=== PATIENT | male | born 1980 | race Hispanic/Latino ===

== ENCOUNTER 2017-05-01 17:24 | Emergency (ER) | payer MEDICAID, OTHER ==
[2017-05-01 17:24] VITALS: BMI 23.5
[2017-05-01 17:41] VITALS: RESP 18; TEMP 98.9
--- NOTE | 2017-05-01 20:09 | ED PDOC ---
Arrival/HPI - General Historian: Patient - History of Present Illness Time/Duration: 24 hours Symptom Onset: Gradual Symptom Course: Unchanged, Improving Quality: Aching Severity Level: Mild Activities at Onset: Rest Context: Home <Kasandra Mccarthy - Last Filed: 05/01/17 20:37> <JimDeepak - Last Filed: 05/02/17 00:13> - General Chief Complaint: Abnormal Skin Integrity Time Seen by Provider: 05/01/17 18:12 - History of Present Illness Narrative History of Present Illness (Text): 05/01/17 20:02 Pt is a 36 year old male who presents with a diffuse, non-pruritic rash over the upper extremity, chest, back, and torso x 1 day. Pt states that he has had headache, and nausea x 2 days. States he works at a [employer] and wears latex gloves and noticed that his rash was worse while working and began to resolve after leaving today. Rash returned mildly while waiting to be seen in the emergency department. Denies vomiting, diarrhea, fever, chills or any other complaints. Reports sick contacts at work. 05/01/17 20:09 (Kasandra Mccarthy) Past Medical History - Provider Review Nursing Documentation Reviewed: Yes - Travel History Have you recently traveled outside [place] w/in the past 3 mons?: No - Past History Past History: No Previous - Infectious Disease Hx of Infectious Diseases: None - Tetanus Immunization Tetanus Immunization: Unknown - Past Medical History Past Medical History: No Previous - Cardiac Hx Cardiac Disorders: No Hx Hypertension: No - Pulmonary Hx Respiratory Disorders: No Hx Tuberculosis: No - Neurological Hx Neurological Disorder: No HX Cerebrovascular Accident: No Hx Seizures: No - HEENT Hx HEENT Disorder: No - Renal Hx Renal Disorder: No - Endocrine/Metabolic Hx Endocrine Disorders: No - Hematological/Oncological Hx Blood Disorders: No Hx Cancer: No - Integumentary Hx Dermatological Disorder: No - Musculoskeletal/Rheumatological Hx Musculoskeletal Disorders: No - Gastrointestinal Hx Gastrointestinal Disorders: No - Genitourinary/Gynecological Hx Genitourinary Disorders: No Hx Sexually Transmitted Diseases: No - Psychiatric Hx Depression: Yes Hx Emotional Abuse: No Hx Physical Abuse: No Hx Substance Use: No - Past Surgical History Past Surgical History: Non-Contributing - Surgical History Hx Orthopedic Surgery: Yes (RIGHT HAND) Other/Comment: right hand - Anesthesia Hx Anesthesia: Yes Hx Anesthesia Reactions: No Hx Malignant Hyperthermia: No - Suicidal Assessment Feels Threatened In Home Enviroment: No <Kasandra Mccarthy - Last Filed: 05/01/17 20:37> Family/Social History - Physician Review Nursing Documentation Reviewed: Yes Family/Social History: Unknown Family HX Smoking Status: Never Smoked Hx Alcohol Use: No Hx Substance Use: No Hx Substance Use Treatment: No <Kasandra Mccarthy - Last Filed: 05/01/17 20:37> Allergies/Home Meds <Kasandra Mccarthy - Last Filed: 05/01/17 20:37> <Deepak Fernandez - Last Filed: 05/02/17 00:13> Allergies/Adverse Reactions: Allergies No Known Allergies Allergy (Verified 05/01/17 17:41) Review of Systems - Review of Systems Constitutional: Fatigue Eyes: Normal ENT: Normal Respiratory: Normal Cardiovascular: Normal Gastrointestinal: Nausea Genitourinary Male: Normal Musculoskeletal: Arthralgias, Back Pain Skin: Rash (hands and arms) Neurological: Headache Endocrine: Normal Hemo/Lymphatic: Normal Psychiatric: Normal <Kasandra Mccarthy - Last Filed: 05/01/17 20:37> Physical Exam Vital Signs Reviewed: Yes Temperature: Afebrile Blood Pressure: Normal Pulse: Regular Respiratory Rate: Normal Appearance: Positive for: Well-Appearing, Non-Toxic, Comfortable Pain Distress: None Mental Status: Positive for: Alert and Oriented X 3 - Systems Exam Head: Present: Atraumatic, Normocephalic Pupils: Present: PERRL Extroacular Muscles: Present: EOMI Conjunctiva: Present: Normal Mouth: Present: Moist Mucous Membranes Pharnyx: Present: ERYTHEMA Nose (Internal): Present: Normal Inspection Neck: Present: Normal Range of Motion Respiratory/Chest: Present: Clear to Auscultation, Good Air Exchange. No: Respiratory Distress, Accessory Muscle Use Cardiovascular: Present: Regular Rate and Rhythm, Normal S1, S2. No: Murmurs Abdomen: Present: Normal Bowel Sounds. No: Tenderness, Distention, Peritoneal Signs Back: Present: Normal Inspection Upper Extremity: Present: Normal Inspection. No: Cyanosis, Edema Lower Extremity: Present: Normal Inspection. No: Edema Neurological: Present: GCS=15, CN II-XII Intact, Speech Normal Skin: Present: Warm, Dry, Normal Color, Other (small, pale red papules 1mm in diameter scattered over hands, UE, torso, back, neck, chest). No: Rashes Psychiatric: Present: Alert, Oriented x 3, Normal Insight, Normal Concentration <ShariKasandra L - Last Filed: 05/01/17 20:37> Vital Signs Temp Pulse Resp BP Pulse Ox 05/01/17 23:23 76 18 116/70 99 05/01/17 17:38 98.9 F 80 18 112/76 98 Medical Decision Making <Kasandra Mccarthy - Last Filed: 05/01/17 20:37> <Deepak Fernandez - Last Filed: 05/02/17 00:13> ED Course and Treatment: 05/01/17 20:09 Pt is a 36 year old male who presents with a diffuse, non-pruritic rash over the upper extremity, chest, back, and torso x 1 days. Pt has never experienced a rash like this before; on exam Plan cbc, cmp, ua Rapid flu Progress Note (Kasandra Mccarthy) 05/01/17 23:56 Pt. labs,Rapid Flu all normal.Pt. on exam now c/o itching to the skin rash.Will treat with Benadryl/Prednisone. (Deepak Fernandez) - Lab Interpretations Lab Results: 05/01/17 20:20 05/01/17 20:20 Lab Results 05/01/17 22:45: Influenza Typ A,B (EIA) Negative for flu a/b 05/01/17 20:20: Sodium 140, Potassium 4.0, Chloride 102, Carbon Dioxide 27, Anion Gap 16, BUN 14, Creatinine 0.9, Est GFR ( Amer) > 60, Est GFR (Non- Af Amer) > 60, Random Glucose 88, Calcium 9.7, Total Bilirubin 0.6, AST 50, ALT 75 H, Alkaline Phosphatase 73, Total Protein 7.7, Albumin 4.6, Globulin 3.2, Albumin/Globulin Ratio 1.4 05/01/17 20:20: WBC 6.8, RBC 4.64, Hgb 14.3, Hct 40.7 L, MCV 87.7, MCH 30.8, MCHC 35.1, RDW 13.8, Plt Count 180, MPV 10.7 - Medication Orders Current Medication Orders: Discontinued Medications Diphenhydramine HCl (Benadryl) 50 mg PO ONCE STA Stop: 05/01/17 23:54 Prednisone (Prednisone Tab) 40 mg PO ONCE STA Stop: 05/01/17 23:54 Disposition/Present on Arrival - Present on Arrival Any Indicators Present on Arrival: Yes History of DVT/PE: No History of Uncontrolled Diabetes: No Urinary Catheter: No History of Decub. Ulcer: No History Surgical Site Infection Following: None - Disposition Have Diagnosis and Disposition been Completed?: Yes <Kasandra Mccarthy - Last Filed: 05/01/17 20:37> - Present on Arrival Any Indicators Present on Arrival: No - Disposition Have Diagnosis and Disposition been Completed?: Yes Disposition Time: 23:55 Patient Plan: Discharge <Deepak Fernandez - Last Filed: 05/02/17 00:13> - Disposition Diagnosis: Rash in adult, Allergic reaction Disposition: HOME/ ROUTINE Patient Problems: Current Active Problems Problem Status Onset Allergic reaction Acute Rash in adult Acute Condition: GOOD Discharge Instructions (ExitCare): Skin Rash (DC) Additional Instructions: Take meds as prescribed/follow 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
[2017-05-01 20:45] LABS: HEMOGLOBIN 14.3 g/dL (14.0-18.0); MEAN CELL VOLUME 87.7 fl (80.0-105.0); MEAN CORPUSCULAR HEMOGLOBIN 30.8 pg (25.0-35.0); MEAN CORPUSCULAR HGB CONC 35.1 g/dl (31.0-37.0); MEAN PLATELET VOLUME 10.7 fl (7.0-11.0); RBC 4.64 10^6/uL (3.5-6.1); RED CELL DISTRIBUTION WIDTH 13.8 % (11.5-14.5); WHITE BLOOD COUNT 6.8 10^3/ul (4.5-11.0)
[2017-05-01 20:49] LABS: ALB/GLOB RATIO 1.4 (1.1-1.8); ALBUMIN 4.6 g/dL (3.0-4.8); ALT/SGPT 75 U/L (7-56); AST/SGOT 50 U/L (17-59); BLOOD UREA NITROGEN 14 mg/dL (7-21); CALCIUM 9.7 mg/dL (8.4-10.5); GFR AFRICAN-AMERICAN > 60; GFR NON-AFRICAN AMERICAN > 60
[2017-05-01 23:23] VITALS: BP 116/70; PULSE 76; O2SAT 99
== END 2017-05-02 00:20 | disposition home or self-care (01) ==
LOC: ED 17:24
DX: R21 Rash and other nonspecific skin eruption (principal); T78.40XA Allergy, unspecified, initial encounter

== ENCOUNTER 2017-08-06 19:16 | Emergency (ER) | payer MEDICAID, OTHER ==
[2017-08-06 19:17] VITALS: BMI 23.5
[2017-08-06 19:36] VITALS: RESP 17
--- NOTE | 2017-08-06 19:58 | ED PDOC ---
Arrival/HPI - General Chief Complaint: ENT Problem Time Seen by Provider: 08/06/17 19:36 Historian: Patient - History of Present Illness Narrative History of Present Illness (Text): 08/06/17 20:12 A 37 year old male, with no significant past medical history, presents to the emergency department complaining of sore throat discomfort, nasal congestion, and occasional headache for the past few days. Patient reports also experiencing subjective fever. Patient denies any nausea, vomiting, diarrhea, shortness of breath, chest pain, or any other complaints at this time. No PMD Past Medical History - Provider Review Nursing Documentation Reviewed: Yes - Past History Past History: No Previous - Infectious Disease Hx of Infectious Diseases: None - Tetanus Immunization Tetanus Immunization: Unknown - Past Medical History Past Medical History: No Previous - Cardiac Hx Cardiac Disorders: No Hx Hypertension: No - Pulmonary Hx Respiratory Disorders: No Hx Tuberculosis: No - Neurological Hx Neurological Disorder: No - HEENT Hx HEENT Disorder: No - Renal Hx Renal Disorder: No - Endocrine/Metabolic Hx Endocrine Disorders: No - Hematological/Oncological Hx Blood Disorders: No - Integumentary Hx Dermatological Disorder: No - Musculoskeletal/Rheumatological Hx Musculoskeletal Disorders: No - Gastrointestinal Hx Gastrointestinal Disorders: No - Genitourinary/Gynecological Hx Genitourinary Disorders: Yes Hx Sexually Transmitted Diseases: Yes - Psychiatric Hx Psychophysiologic Disorder: Yes Hx Depression: Yes Hx Substance Use: No - Past Surgical History Past Surgical History: Non-Contributing - Surgical History Hx Orthopedic Surgery: Yes (RIGHT HAND) - Anesthesia Hx Anesthesia: Yes Hx Anesthesia Reactions: No Hx Malignant Hyperthermia: No - Suicidal Assessment Feels Threatened In Home Enviroment: No Family/Social History - Physician Review Nursing Documentation Reviewed: Yes Family/Social History: No Known Family HX Smoking Status: Never Smoked Hx Alcohol Use: No Hx Substance Use: No Hx Substance Use Treatment: No Allergies/Home Meds Allergies/Adverse Reactions: Allergies latex Allergy (Verified 08/06/17 19:32) RASH Review of Systems - Physician Review All systems were reviewed & negative as marked: Yes - Review of Systems Constitutional: Fevers (subjective) ENT: Sore Throat, Other (nasal congestion) Respiratory: absent: SOB Cardiovascular: absent: Chest Pain Gastrointestinal: absent: Diarrhea, Nausea, Vomiting Neurological: Headache (occasional) Physical Exam Vital Signs Reviewed: Yes Vital Signs Temp Pulse Resp BP Pulse Ox 08/06/17 19:33 98.3 F 96 H 17 102/69 98 Temperature: Afebrile Blood Pressure: Normal Pulse: Regular Respiratory Rate: Normal Appearance: Positive for: Well-Appearing Pain Distress: None Mental Status: Positive for: Alert and Oriented X 3 - Systems Exam Pharnyx: Present: ERYTHEMA, EXUDATE Nose (Internal): Present: Other (positive nasal congestion) Neck: Present: Normal Range of Motion, Other (neck is supple) Respiratory/Chest: Present: Clear to Auscultation, Good Air Exchange. No: Respiratory Distress, Accessory Muscle Use Cardiovascular: Present: Regular Rate and Rhythm, Normal S1, S2. No: Murmurs Abdomen: No: Tenderness, Distention, Peritoneal Signs Upper Extremity: Present: Normal Inspection. No: Cyanosis, Edema Lower Extremity: Present: Normal Inspection. No: Edema Neurological: Present: GCS=15, CN II-XII Intact, Speech Normal Skin: Present: Warm, Dry, Normal Color. No: Rashes Psychiatric: Present: Alert, Oriented x 3, Normal Insight, Normal Concentration Medical Decision Making ED Course and Treatment: 08/06/17 20:18 Impression: 37 year old male with sore throat discomfort, nasal congestion, occasional headache, and subjective fever. Physical exam shows positive nasal congsetion; erythema/exudates to tonsilar region. Plan: -- Amoxicillin -- Reassess and disposition Progress Notes: - Medication Orders Current Medication Orders: Discontinued Medications Amoxicillin (Amoxil 500 Mg Cap) 500 mg PO STAT STA PRN Reason: Protocol Stop: 08/06/17 19:54 Last Admin: 08/06/17 19:59 Dose: 500 mg - Scribe Statement The provider has reviewed the documentation as recorded by the Arash Graf Provider Scribe Attestation: All medical record entries made by the Arsah were at my direction and personally dictated by me. I have reviewed the chart and agree that the record accurately reflects my personal performance of the history, physical exam, medical decision making, and the department course for this patient. I have also personally directed, reviewed, and agree with the discharge instructions and disposition. Disposition/Present on Arrival - Present on Arrival Any Indicators Present on Arrival: No History of DVT/PE: No History of Uncontrolled Diabetes: No Urinary Catheter: No History of Decub. Ulcer: No History Surgical Site Infection Following: None - Disposition Have Diagnosis and Disposition been Completed?: Yes Diagnosis: Tonsillitis, URI (upper respiratory infection) Disposition: HOME/ ROUTINE Disposition Time: 19:59 Patient Plan: Discharge Condition: GOOD Discharge Instructions (ExitCare): Sore Throat, Adult (DC) Additional Instructions: Drink plenty of liquids/Tylenol as directed/take meds as prescribed/follow up with your doctor this week Prescriptions: Fexofenadine/Pseudoephedrine [Lisa-D 12 Hour Tablet] 1 each PO BID PRN #24 tab.er.12h PRN Reason: Nasal Congestion Amoxicillin [Amoxil 500 mg Cap] 500 mg PO TID #21 cap Forms: [facility] (Upper Sorbian), WORK NOTE
[2017-08-06 20:17] VITALS: BP 110/78; PULSE 82; TEMP 98.2; O2SAT 100
== END 2017-08-06 20:17 | disposition home or self-care (01) ==
LOC: ED 19:16
DX: J03.90 Acute tonsillitis, unspecified (principal)